=== PATIENT | female | born 1985 | race Caucasian/White ===

== ENCOUNTER → 2017-05-15 | Outpatient (CLI) | payer OTHER ==
--- NOTE | 2017-05-15 15:32 | US ---
EXAMINATION TYPE: US pelvis complete transvag DATE OF EXAM: 05/15/2017 COMPARISON: NONE CLINICAL HISTORY: Pelvic Pain R10.2. Pt states pelvic pressure TECHNIQUE: Transvaginal (TV) and Transabdominal (TA) Date of LMP: 05/03/2017 EXAM MEASUREMENTS: Uterus: 9.6 x 5.9 x 6.6 cm Endometrial Stripe: 1.4 cm Right Ovary: 4.3 x 3.3 x 2.7 cm Left Ovary: 3.0 x 2.6 x 2.6 cm 1. Uterus: Retroverted Heterogeneous with probable pedunculated fibroid posterior fundus= 4.8 x 4.1 x 4.8 cm 2. Endometrium: Heterogeneous 3. Right Ovary: Two cysts 1)= 3.1 x 1.7 x 2.1 cm 2)= 2.4 x 1.8 x 1.7 cm 4. Left Ovary: wnl 5. Bilateral Adnexa: wnl 6. Posterior cul-de-sac: wnl Heterogeneous uterus with probable fibroid, cysts right ovary IMPRESSION: 1. Posterior exophytic uterine fibroid. 2. Right ovarian cyst x2.
[2017-05-15 15:47] LABS: Appearance,Urine Clear (Clear); Bilirubin,Urine Negative (Negative); Glucose,Urine (UA) Negative (Negative); Ketones,Urine Negative (Negative); Leukocyte Esterase,Urine Negative (Negative); Nitrite,Urine Negative (Negative); Protein,Urine Negative (Negative); Specific Gravity,Urine 1.002 (1.001-1.035); UA Billing (MACRO vs. MICRO) CHEM; Urobilinogen,Urine <2.0 mg/dL (<2.0)
--- NOTE | 2017-05-16 07:27 | USB ---
Reason for exam: clinical finding. Indicated problem(s): lump or thickening in the right breast. Physical Findings: Nurse Summary: Patient complains of right breast lump x 2 weeks (nurse mm). US Breast RT Right breast ultrasound includes all four quadrants, the retroareolar region and axilla. Finding demonstrates no cystic or solid lesion seen. These results were verbally communicated with the patient and result sheet given to the patient on 05/15/17. ASSESSMENT: Negative, BI-RAD 1 RECOMMENDATION: Routine screening mammogram of both breasts at age 34. Manage patient on a clinical basis.
== END | disposition home or self-care (01) ==
LOC: RADUSWWP 14:48
PROVIDERS: ATTEND Obstetrics & Gynecology
DX: D25.9 Leiomyoma of uterus, unspecified (principal); N83.201 Unspecified ovarian cyst, right side
CPT/HCPCS: 76830; 76856; 81003; 87086

== ENCOUNTER → 2017-06-19 | Outpatient (CLI) | payer OTHER ==
--- NOTE | 2017-06-19 15:42 | US ---
EXAMINATION TYPE: US pelvic complete DATE OF EXAM: 06/19/2017 COMPARISON: 05/15/2017 CLINICAL HISTORY: 32-year-old female previous right Ovarian Cyst N83.20. Follow up to assess right ov valencia cyst TECHNIQUE: Multiple transabdominal sonographic images of the pelvis are obtained. Transvaginal scanni ng was medically necessary to better evaluate the anatomy. Date of LMP: 05/27 FINDINGS: Uterus: Anteverted measuring 9.2 x 7.3 x 5.6 cm. Heterogeneous myometrium with a 4.3 cm left posteri or body/fundal fibroid. This is primarily intramural and partially subserosal. Endometrial Stripe: 1.4 cm which is corresponding to the secretory phase of the menstrual cycle. Right Ovary: 3.9 x 4.2 x 3.4 cm enlarged and 26.1 mL. There is a 3.0 cm cyst within which demonstrat es internal low level echoes. No thickened septations or mural-based nodularity. On 05/15/2017, this me asured 3.1 cm. A second dominant cyst or follicle seen at that time has resolved. Left Ovary: 3.3 x 1.9 x 1.6 cm with small follicles. Mild free fluid noted within the bilateral adnexa. IMPRESSION: 1. Either a recurrent or persistent 3.0 cm dominant follicle or functional cyst within the right ovar y. There are internal low level echoes that could represent debris or some internal hemorrhage. 2. Heterogeneous uterus could reflect diffuse small fibroid change or adenomyosis. There is a 4.3 cm left posterior focal fibroid which is partially subserosal. 3. Mild adnexal free fluid likely physiologic.
== END | disposition home or self-care (01) ==
LOC: RADUSWWP 13:37
PROVIDERS: ATTEND Obstetrics & Gynecology
DX: N83.201 Unspecified ovarian cyst, right side (principal); D25.9 Leiomyoma of uterus, unspecified
CPT/HCPCS: 76830; 76856

== ENCOUNTER → 2017-07-24 | Outpatient (CLI) | payer OTHER ==
--- NOTE | 2017-07-24 09:25 | CT ---
EXAMINATION TYPE: CT thor lumbar spine wo con DATE OF EXAM: 07/24/2017 COMPARISON: NONE HISTORY: 32-year-old female pain in thoracic spine/lumbar spine. History of scoliosis TECHNIQUE: Contiguous axial scanning of the thoracic and lumbar spine without IV contrast. Coronal an d sagittal reconstructions performed. CT DLP: 870.20 mGycm Automated exposure control for dose reduction was used. FINDINGS: There is an S-shaped scoliosis of the thoracolumbar spine. Posterior fusion hardware with laminar hooks extend from T4 through L3 levels. There appears to be bony ankylosis along the posterior elements at these levels. Vertebral body heights are preserved. Alignment is maintained. Along the left, there appears to be variable mild bony neuroforaminal narrowing particularly from T6 through T10 levels. Along the right, there appears to be variable mild bony neuroforaminal narrowing at T5-T6, T6-T7, T9- T10, and T10-T11. At L3-L4, below the fusion, there is facet arthropathy with associated mild to moderate degenerative disc disease. There is bulging disc here as well and mild to moderate right neuroforaminal stenosis. No high-grade canal compromise seen here. At L4-L5, there is mild diffuse disc bulge without spinal canal stenosis. There appears to be a mild to moderate left neuroforaminal stenosis. At L5-S1, additional bulging disc with no spinal canal stenosis. Facet arthropathy is present with mo derate left neuroforaminal stenosis. Allowing for streak and beam hardening artifact, no high-grade canal compromise is identified. There are cholecystectomy clips and some degenerative changes at the left greater than right SI joint s. IMPRESSION: 1. S-SHAPED SCOLIOSIS WITH POSTERIOR FUSION HARDWARE FROM T4 THROUGH L3 LEVELS AND WITH BONY ANKYLOSI S OF THE POSTERIOR ELEMENTS AT THESE LEVELS. 2. FACET ARTHROPATHY AND DEGENERATIVE DISC DISEASE IN THE LUMBAR SPINE, PARTICULARLY AT L3-L4 BELOW T HE FUSION. CHANGES RESULT IN MILD TO MODERATE RIGHT NEUROFORAMINAL STENOSIS AT L3-L4 AND ON THE LEFT AT L4-L5. MODERATE LEFT NEUROFORAMINAL STENOSIS AT L5-S1. 3. VARIABLE MILD BONY NEUROFORAMINAL NARROWING IN THE THORACIC SPINE OUTLINED ABOVE. 4. NO KENNEY CANAL COMPROMISE SEEN.
== END | disposition home or self-care (01) ==
LOC: RADCTMAIN 07:05
PROVIDERS: ATTEND Internal Medicine
DX: M99.72 Connective tissue and disc stenosis of intervertebral foramina of thoracic region (principal); M99.73 Connective tissue and disc stenosis of intervertebral foramina of lumbar region; M46.06 Spinal enthesopathy, lumbar region; M51.36 Other intervertebral disc degeneration, lumbar region; Q76.3 Congenital scoliosis due to congenital bony malformation; Z98.1 Arthrodesis status; Z98.890 Other specified postprocedural states; Z88.1 Allergy status to other antibiotic agents
CPT/HCPCS: 72128; 72131

== ENCOUNTER → 2020-04-27 | Outpatient (CLI) | payer OTHER ==
[2020-04-28 00:54] LABS: Hepatitis A Antibody IgM Non-Reactive (Non-Reactive); Hepatitis B Core IgM Non-Reactive (Non-Reactive); Hepatitis B Surface Antigen Non-Reactive (Non-Reactive); Hepatitis C IgG Antibody Non-Reactive (Non-Reactive)
== END | disposition home or self-care (01) ==
LOC: LABWHC1 13:29
PROVIDERS: ATTEND Nurse Practitioner Family
DX: Z20.5 Contact with and (suspected) exposure to viral hepatitis (principal)
CPT/HCPCS: 36415; 80074

== ENCOUNTER → 2020-06-20 | Outpatient (CLI) | payer OTHER ==
--- NOTE | 2020-06-20 12:41 | US ---
EXAMINATION TYPE: US thyroid st tissue head/neck DATE OF EXAM: 06/20/2020 COMPARISON: 03/30/2015 US CLINICAL HISTORY: Z86.39 H/O Goiter. GLAND SIZE: Right Lobe: 5.5 x 1.5 x 1.8 cm Overall Parenchyma: heterogenous Left Lobe: 5.0 x 1.4 x 1.4 cm Overall Parenchyma: homogeneous Isthmus Thickness: 0.3 cm NODULES RIGHT: # of nodules measured on right: 0 LEFT: # of nodules measured on left: 0 ISTHMUS: # of nodules measured in the isthmus: 0 Bilateral neck scanned, no evidence of lymphadenopathy. Right thyroid lobe is enlarged and hypervascular IMPRESSION: Thyromegaly correlate for thyroiditis. No discrete thyroid nodule.
== END | disposition home or self-care (01) ==
LOC: RADUSWWP 12:15
PROVIDERS: ATTEND Family Medicine
DX: Z09 Encounter for follow-up examination after completed treatment for conditions other than malignant neoplasm (principal); E01.0 Iodine-deficiency related diffuse (endemic) goiter; Z86.39 Personal history of other endocrine, nutritional and metabolic disease
CPT/HCPCS: 76536

== ENCOUNTER → 2021-02-06 | Outpatient (CLI) | payer OTHER ==
[2021-02-06 16:43] LABS: T4, Free (Free Thyroxine) 1.1 ng/dL (0.80-1.80)
== END | disposition home or self-care (01) ==
LOC: LABWHC1 10:12
PROVIDERS: ATTEND Internal Medicine
DX: E06.9 Thyroiditis, unspecified (principal)
CPT/HCPCS: 36415; 84439; 84443; 84445; 86376

== ENCOUNTER → 2021-02-20 | Outpatient (CLI) | payer OTHER ==
--- NOTE | 2021-02-20 22:53 | MR ---
EXAMINATION TYPE: MR brain wo/w con DATE OF EXAM: 02/20/2021 COMPARISON: NONE HISTORY: Rt eye pain, vision changes, exophthalmia. TECHNIQUE: Multiplanar, multisequence images of the brain and brainstem is performed without and with IV contras t, utilizing 9 mL intravenous Gadavist . FINDINGS: Diffusion weighted images demonstrate no evidence of a recent infarct or other diffusion ab normality. There is no extra-axial fluid collection or significant white matter signal abnormality. The ventricular system and cisternal spaces are normal in size and appearance. The brain volume is age appropriate. Midline structures demonstrate empty sella morphology. The craniocervical junction appears within no rmal limits. Post contrast images demonstrate no abnormal enhancement. The dural venous sinuses appe ar patent. There is 1.7 cm mucous retention cyst in the anterior inferior left maxillary sinus otherw ise paranasal sinuses are clear. Globes are intact bilaterally. There is CSF prominence surrounding b ilateral optic nerve sheaths. IMPRESSION: Prominence of CSF surrounding optic nerves along with empty sella morphology raises allen rn for possible intracranial hypertension, correlate clinically.
== END | disposition home or self-care (01) ==
LOC: RADMRIMAIN 17:05
PROVIDERS: ATTEND Family Medicine
DX: H05.20 Unspecified exophthalmos (principal); H53.9 Unspecified visual disturbance; H57.11 Ocular pain, right eye
CPT/HCPCS: 70553; A9585

== ENCOUNTER 2024-02-28 07:18 | Inpatient (IN) | payer BC, OTHER ==
--- NOTE | 2024-02-28 07:30 | ED ---
Abdominal Pain HPI - General Chief Complaint: Abdominal Pain Stated Complaint: R side abd pain/Nausea Time Seen by Provider: 02/28/24 07:22 Source: patient, RN notes reviewed Mode of arrival: ambulatory Limitations: no limitations - History of Present Illness Initial Comments: This is a 38-year-old female who presents to the emergency department for right flank pain and abdominal pain. States that symptoms started around 4 to 5 AM. She has associated nausea and vomiting. Denies any changes in bowel/bladder habits or fever/chills. Also denies any history of kidney stones or similar symptoms in the past. MD Complaint: abdominal pain, flank pain - Related Data Home Medications Medication Instructions Recorded Confirmed Cbl-[id number]-Pioyw Acid 1 cap PO DAILY 01/01/23 01/01/23 [-U Capsule (formulary)] Previous Rx's Medication Instructions Recorded Nitrofurantoin Monohyd/M-Cryst 100 mg PO Q12HR #10 cap 01/01/23 [Macrobid] Allergies Allergy/AdvReac Type Severity Reaction Status Date / Time cefaclor [From Ceclor] Allergy Anaphylaxis Verified 01/01/23 21:17 sulfamethoxazole AdvReac Nausea & Verified 02/28/24 07:22 [From Bactrim] Vomiting & Diarrhea trimethoprim [From Bactrim] AdvReac Nausea & Verified 02/28/24 07:22 Vomiting & Diarrhea Review of Systems ROS Statement: Those systems with pertinent positive or pertinent negative responses have been documented in the HPI. ROS Other: All systems not noted in ROS Statement are negative. Past Medical History Additional Past Medical History / Comment(s): Fibriods History of Any Multi-Drug Resistant Organisms: None Reported Past Surgical History: Cholecystectomy Additional Past Surgical History / Comment(s): scoliosis Past Psychological History: No Psychological Hx Reported Smoking Status: Former smoker Past Alcohol Use History: Rare Past Drug Use History: Marijuana General Exam Limitations: no limitations General appearance: alert, in distress Head exam: Present: atraumatic, normocephalic, normal inspection Respiratory exam: Present: normal lung sounds bilaterally. Absent: respiratory distress, wheezes, rales, rhonchi, stridor Cardiovascular Exam: Present: regular rate, normal rhythm, normal heart sounds. Absent: systolic murmur, diastolic murmur, rubs, gallop, clicks GI/Abdominal exam: Present: soft, tenderness (RLQ), normal bowel sounds. Ab sent: distended Back exam: Present: CVA tenderness (R). Absent: CVA tenderness (L) Neurological exam: Present: alert, oriented X3, CN II-XII intact Psychiatric exam: Present: normal affect, normal mood Skin exam: Present: warm, dry, intact, normal color. Absent: rash Course Vital Signs 02/28/24 02/28/24 02/28/24 07:18 10:43 11:29 Temperature 98 F 97.0 F L Pulse Rate 55 L Pulse Rate [ 59 L Pulse Oximetery ] Respiratory 18 18 16 Rate Blood Pressure 147/77 127/114 Blood Pressure 126/58 [Left Arm] O2 Sat by Pulse 98 100 100 Oximetry Medical Decision Making - Medical Decision Making This is a 38 year old female who presents to the emergency department for abdominal pain. Was pt. sent in by a medical professional or institution? @ -No Did you speak to anyone other than the patient for history? @ -No Did you review nursing and triage notes? @ -Yes, and I agree, it is accurate with regards to the patient's symptoms. Were old charts reviewed? @ -No Differential Diagnosis? @ -Differential Abdominal Pain Women: Appendicitis, Cholecystitis, diverticulosis, ischemic bowel, pancreatitis, hepatitis, UTI, gastroenteritis, AAA, incarcerated hernia, bowel obstruction, constipation, inflammatory bowel, hepatitis, peptic ulcer disease, splenic infarction, perforated viscus, vulvitis, ovarian torsion, PID, kidney stone, placenta abruption, this is not meant to be an all-inclusive list EKG interpreted by me (3pts min.)? @ -Not obtained X-rays interpreted by me (1pt min.)? @ -Not obtained CT interpreted by me (1pt min.)? @ -CT scan of the abdomen and pelvis obtained. My interpretation identifies no evidence of a ureteral calculus. U/S interpreted by me (1pt. min.)? @ -Transvaginal ultrasound obtained. My interpretation identifies lack of flow to the right ovary. What testing was considered but not performed? (CT, X-rays, U/S, labs)? Why? @ -None What meds were considered but not given? Why? @ -None Did you discuss the management of the patient with other professionals? @ -Yes, Dr. Jovel, OVEN LOADER, who evaluated her in the emergency department and took her to the OR for surgery for right sided ovarian torsion. Did you reconcile home meds? @ -No Was smoking cessation discussed for >3mins.? @ -No Was critical care preformed (if so, how long)? @ -No Were there social determinants of health that impacted care today? How? (Home lessness, low income, unemployed, alcoholism, drug addiction, transportation, low edu. Level, literacy, decrease access to med. care, group home, rehab)? @ -No Was there de-escalation of care discussed even if they declined? (Discuss DNR or withdrawal of care, Hospice)? @ -No What co-morbidities impacted this encounter? (DM, HTN, Smoking, COPD, CAD, Ca ncer, CVA, Hep., AIDS, mental health diagnosis, sleep apnea, morbid obesity)? @ -None Was patient admitted / discharged? @ -Admitted. Lab work demonstrates an elevated lactic acid of 3.5. Given the flank pain, patient was initially worked up for possible kidney stone. CT scan of the abdomen and pelvis demonstrates no evidence of a ureteral calculus, but does demonstrate an asymmetrically enlarged right ovary and a large lobulated uterus compatible with fibroid change. Transvaginal ultrasound was subsequently obtained. I spoke with the donor center technician following the exam who saw blood flow to the periphery but not to the ovary itself. This was discussed with Dr. Jovel, OVEN LOADER, who reviewed the patient's images. I was then contacted by radiology confirming that there was no flow to the right ovary itself, only around the periphery, and they were concerned for ovarian torsion. I spoke with Dr. Jovel again, who was in agreement with radiology. She evaluated her in the emergency department and she was taken from the emergency department to the OR for emergency surgery regarding ovarian torsion. Undiagnosed new problem with uncertain prognosis? @ -None Drug Therapy requiring intensive monitoring for toxicity (Heparin, Nitro, Insulin, Cardizem)? @ -None Were any procedures done? @ -None Diagnosis/symptom? @ -Right ovarian torsion Acute, or Chronic, or Acute on Chronic? @ -Acute Uncomplicated (without systemic symptoms) or Complicated (systemic symptoms)? @ -Complicated Side effects of treatment? @ -None Exacerbation, Progression, or Severe Exacerbation] @ -Not applicable Poses a threat to life or bodily function? @ -Yes This case was discussed in detail with the attending ED physician, Dr. Barnes. Presentation, findings, and treatment plan discussed in detail as well. - Lab Data Result diagrams: 02/29/24 05:09 02/28/24 07:51 Lab Results 02/28/24 02/28/24 02/28/24 Range/Units 07:51 07:51 07:51 WBC 9.9 (3.8-10.6) k/uL RBC 4.09 (3.80-5.40) m/uL Hgb 11.1 L (11.4-16.0) gm/dL Hct 35.0 (34.0-46.0) % MCV 85.5 (80.0-100.0) fL MCH 27.3 (25.0-35.0) pg MCHC 31.9 (31.0-37.0) g/dL RDW 16.0 H (11.5-15.5) % Plt Count 374 (150-450) k/uL MPV 8.6 Neutrophils % 86 % Lymphocytes % 10 % Monocytes % 3 % Eosinophils % 1 % Basophils % 0 % Neutrophils # 8.5 H (1.3-7.7) k/uL Lymphocytes # 1.0 (1.0-4.8) k/uL Monocytes # 0.3 (0-1.0) k/uL Eosinophils # 0.1 (0-0.7) k/uL Basophils # 0.0 (0-0.2) k/uL Sodium 138 (137-145) mmol/L Potassium 3.7 (3.5-5.1) mmol/L Chloride 117 H (98-107) mmol/L Carbon Dioxide 14 L (22-30) mmol/L Anion Gap 7 mmol/L BUN 11 (7-17) mg/dL Creatinine 0.40 L (0.52-1.04) mg/dL Est GFR (CKD-EPI)AfAm >90 (>60 ml/min/1.73 sqM) Est GFR (CKD-EPI)NonAf >90 (>60 ml/min/1.73 sqM) Glucose 111 H (74-99) mg/dL Lactic Ac Sepsis Rflx Plasma Lactic Acid Gilles (0.7-2.0) mmol/L Calcium 7.3 L (8.4-10.2) mg/dL Total Bilirubin 0.6 (0.2-1.3) mg/dL AST 25 (14-36) U/L ALT 13 (4-34) U/L Alkaline Phosphatase 44 (38-126) U/L Total Protein 6.1 L (6.3-8.2) g/dL Albumin 3.2 L (3.5-5.0) g/dL Amylase 55 (30-110) U/L Lipase 79 (23-300) U/L HCG, Qual Not Detected Urine Color Light Yellow Urine Appearance Clear (Clear) Urine pH 8.5 H (5.0-8.0) Ur Specific Beccaria 1.023 (1.001-1.035) Urine Protein 1+ H (Negative) Urine Glucose (UA) Negative (Negative) Urine Ketones 2+ H (Negative) Urine Blood Moderate H (Negative) Urine Nitrite Negative (Negative) Urine Bilirubin Negative (Negative) Urine Urobilinogen <2.0 (<2.0) mg/dL Ur Leukocyte Esterase Negative (Negative) Urine RBC 3 (0-5) /hpf Urine WBC 2 (0-5) /hpf Ur Squamous Epith Cells 1 (0-4) /hpf Urine Mucus Rare H (None) /hpf 02/28/24 02/28/24 Range/Units 07:51 08:32 WBC (3.8-10.6) k/uL RBC (3.80-5.40) m/uL Hgb (11.4-16.0) gm/dL Hct (34.0-46.0) % MCV (80.0-100.0) fL MCH (25.0-35.0) pg MCHC (31.0-37.0) g/dL RDW (11.5-15.5) % Plt Count (150-450) k/uL MPV Neutrophils % % Lymphocytes % % Monocytes % % Eosinophils % % Basophils % % Neutrophils # (1.3-7.7) k/uL Lymphocytes # (1.0-4.8) k/uL Monocytes # (0-1.0) k/uL Eosinophils # (0-0.7) k/uL Basophils # (0-0.2) k/uL Sodium (137-145) mmol/L Potassium (3.5-5.1) mmol/L Chloride (98-107) mmol/L Carbon Dioxide (22-30) mmol/L Anion Gap mmol/L BUN (7-17) mg/dL Creatinine (0.52-1.04) mg/dL Est GFR (CKD-EPI)AfAm (>60 ml/min/1.73 sqM) Est GFR (CKD-EPI)NonAf (>60 ml/min/1.73 sqM) Glucose (74-99) mg/dL Lactic Ac Sepsis Rflx Y Plasma Lactic Acid Gilles 3.5 H* (0.7-2.0) mmol/L Calcium (8.4-10.2) mg/dL Total Bilirubin (0.2-1.3) mg/dL AST (14-36) U/L ALT (4-34) U/L Alkaline Phosphatase (38-126) U/L Total Protein (6.3-8.2) g/dL Albumin (3.5-5.0) g/dL Amylase (30-110) U/L Lipase (23-300) U/L HCG, Qual Urine Color Urine Appearance (Clear) Urine pH (5.0-8.0) Ur Specific Beccaria (1.001-1.035) Urine Protein (Negative) Urine Glucose (UA) (Negative) Urine Ketones (Negative) Urine Blood (Negative) Urine Nitrite (Negative) Urine Bilirubin (Negative) Urine Urobilinogen (<2.0) mg/dL Ur Leukocyte Esterase (Negative) Urine RBC (0-5) /hpf Urine WBC (0-5) /hpf Ur Squamous Epith Cells (0-4) /hpf Urine Mucus (None) /hpf - Radiology Data Radiology results: report reviewed, image reviewed Disposition Clinical Impression: Torsion of right ovary Disposition: ADMITTED IP TO THIS [facility] Time of Disposition: 11:25
[2024-02-28] MEDS: MORPHINE SULFATE 4 MG/ML SYRINGE IVP STA ×2 (07:55→10:46)
[2024-02-28] MEDS: SODIUM CHLORIDE 0.9% 1,000 ML IV STA ×2 (07:55→08:39)
[2024-02-28] MEDS: KETOROLAC 15 MG/ML 1 ML VIAL IVP STA ×2 (07:55→10:46)
[2024-02-28] MEDS: ONDANSETRON 4 MG/2 ML VIAL IVP STA ×3 (07:55→10:52)
[2024-02-28 08:30] LABS: ALT 13 U/L (4-34); African American GFR (CKD) >90 (>60 ml/min/1.73 sqM); Amylase 55 U/L (30-110); Anion Gap 7 mmol/L; Blood Urea Nitrogen 11 mg/dL (7-17); Calcium 7.3 mg/dL (8.4-10.2); Carbon Dioxide 14 mmol/L (22-30); Chloride 117 mmol/L (98-107); Glucose 111 mg/dL (74-99); Lipase 79 U/L (23-300); Non-African American GFR(CKD) >90 (>60 ml/min/1.73 sqM); Sodium 138 mmol/L (137-145); Total Bilirubin 0.6 mg/dL (0.2-1.3)
[2024-02-28 08:31] LABS: AST 25 U/L (14-36); Albumin 3.2 g/dL (3.5-5.0); Alkaline Phosphatase 44 U/L (38-126); Potassium 3.7 mmol/L (3.5-5.1); Total Protein 6.1 g/dL (6.3-8.2)
[2024-02-28 08:38] LABS: Basophils % (A) 0 %; Eosinophils # (A) 0.1 k/uL (0-0.7); Eosinophils % (A) 1 %; HGB 11.1 gm/dL (11.4-16.0); Lymphocytes % (A) 10 %; MCH 27.3 pg (25.0-35.0); MCHC 31.9 g/dL (31.0-37.0); MCV 85.5 fL (80.0-100.0); Mean Platelet Volume 8.6; Monocytes # (A) 0.3 k/uL (0-1.0); Monocytes % (A) 3 %; Neutrophils # (A) 8.5 k/uL (1.3-7.7); Neutrophils % (A) 86 %; Platelet Count 374 k/uL (150-450); RBC 4.09 m/uL (3.80-5.40); WBC 9.9 k/uL (3.8-10.6)
--- NOTE | 2024-02-28 09:14 | CT ---
EXAMINATION TYPE: CT abdomen pelvis wo con CT DLP: 728.9 mGycm, Automated exposure control for dose reduction was used. DATE OF EXAM: 02/28/2024 8:29 AM COMPARISON: CT abdomen pelvis most recent from 07/11/2011 CLINICAL INDICATION:Female, 38 years old with history of Right flank pain; Right flank pain TECHNIQUE: Axial CT abdomen pelvis wo con;Sagittal and coronal reformats were created on a separate workstation. Contrast used: mL of , (none if empty) Oral contrast used: without Oral Contrast (none if empty) FINDINGS: LOWER CHEST: Unremarkable ABDOMEN LIVER: Unremarkable GALLBLADDER AND BILE DUCTS: Gallbladder surgically absent. PANCREAS: Unremarkable. SPLEEN: Unremarkable. ADRENAL GLANDS: Unremarkable. KIDNEYS AND URETERS: No evidence of hydronephrosis or renal calculus. The ureters are unremarkable. PELVIS BLADDER: Unremarkable REPRODUCTIVE: Enlarged lobulated uterus the right ovary is asymmetrically enlarged and hyperemic. Rig ht Ovary measuring 53 x 33 mm series 201 image 63. Left ovary measuring 33 x 25 mm. ABDOMEN & PELVIS STOMACH AND BOWEL: No evidence of bowel obstruction. The appendix is visualized and normal. Small lashon unt of feces seen in the terminal ileum series 201 image 52 PERITONEUM/RETROPERITONEUM: No evidence of pneumoperitoneum or free fluid. VASCULATURE: No evidence of aortic aneurysm. MUSCULOSKELETAL: No acute osseous abnormalities LYMPH NODES: No gross evidence for lymphadenopathy. SOFT TISSUE/ABDOMINAL WALL: Unremarkable IMPRESSION: 1. Asymmetrically enlarged right ovary consider further evaluation with transabdominal ultrasound. T he right ovary is located to the right of the uterus more anterior low pelvis probably best seen on t ransabdominal imaging not transvaginal. 2. Large lobulated uterus compatible with fibroid change. 3. No obstructive uropathy identified. The appendix is normal.
[2024-02-28 09:44] LABS: HCG,Qualitative Serum Not Detected
[2024-02-28 10:14] LABS: Appearance,Urine Clear (Clear); Bilirubin,Urine Negative (Negative); Blood,Urine Moderate (Negative); Color,Urine Light Yellow; Glucose,Urine (UA) Negative (Negative); Ketones,Urine 2+ (Negative); Leukocyte Esterase,Urine Negative (Negative); Mucus,Urine Rare /hpf; Nitrite,Urine Negative (Negative); PH, Urine 8.5 (5.0-8.0); Protein,Urine 1+ (Negative); RBC,Urine 3 /hpf (0-5); Specific Gravity,Urine 1.023 (1.001-1.035); Squamous Epithelial Cell,Urine 1 /hpf (0-4); Urobilinogen,Urine <2.0 mg/dL (<2.0); WBC,Urine 2 /hpf (0-5)
--- NOTE | 2024-02-28 10:19 | US ---
EXAMINATION TYPE: US transvaginal DATE OF EXAM: 02/28/2024 COMPARISON: NONE CLINICAL INDICATION: Female, 38 years old with history of Pelvic pain, enlarged right ovary on CT; f/ u to ct scan pain rlq TECHNIQUE: Transvaginal (TV). Transabdominal sonographic images of the pelvis were acquired. Trans vaginal sonographic images were medically necessary to better assess the following anatomy: EXAM MEASUREMENTS: Uterus: 11.9 x 7.9 x 11 cm Endometrial Stripe: not visualized due to fibroids Right Ovary: 5.9 x 5.3 x 4.1 cm Left Ovary: Obscured by bowel gas. 1. Uterus: Anteverted multiple fibroids seen largest 6.7 cm. 2. Endometrium: Obscured by fibroids 3. Right Ovary: enlarged flow seen around periphery not seen within ovary. Findings can be compatib le with ovarian torsion. Clinical correlation recommended. 4. Left Ovary: Obscured by overlying bowel gas Spectral, color and waveform doppler imaging shows not good arterial and venous flow within the rig ht ovary; 5. Bilateral Adnexa: wnl 6. Posterior cul-de-sac: wnl IMPRESSION: 1. Lack of color flow within the right ovary is suspicious for ovarian torsion. Report was called to the emergency room PA by Dr. Whitney by telephone at 1017 hours 02/28/2024 2. Uterine fibroids.
[2024-02-28] MEDS: ONDANSETRON 4 MG/2 ML VIAL IM STA (10:54)
[2024-02-28] MEDS: ACETAMINOPHEN IV (For NPO) 1,000 MG in EMPTY BAG 1 BAG IVPB STA (10:57)
[2024-02-28] MEDS ORDERED: NALOXONE 0.4 MG/ML 1 ML VIAL IV PRN (11:24)
[2024-02-28] MEDS: LACTATED RINGERS 1,000 ML IV ONE (11:28)
--- NOTE | 2024-02-28 11:34 | P.HPOB ---
History of Present Illness H&P Date: 02/28/24 Chief Complaint: Right lower quadrant pain, right ovarian torsion 38-year-old 1 para 1-0-0-1 that presented to the emergency department this morning with complaints of sudden onset right lower quadrant pain that began this morning. Patient has noted increasing pain while in the ER, nausea and vomiting. On CT examination a enlarged right ovary was appreciated. Tr ansabdominal ultrasound was performed revealing ovarian torsion. US reviewed by myself, enlarged fibroid uterus 11cm, right ovary with no blood flow appreciated, peripheral flow only, normal appearing left ovary [facility] history c/s secindary to prior myomoecotmy menses are regular q month with moderate to heavy flow Review of Systems Constitutional: Reports fatigue, Denies chills, Denies fever Ears, nose, mouth and throat: Denies headache Cardiovascular: Denies leg edema Gastrointestinal: Reports nausea, Reports vomiting Genitourinary: Denies abnormal vaginal bleeding, Denies Past Medical History Additional Past Medical History / Comment(s): Fibriods History of Any Multi-Drug Resistant Organisms: None Reported Past Surgical History: Cholecystectomy Additional Past Surgical History / Comment(s): scoliosis Past Psychological History: No Psychological Hx Reported Smoking Status: Former smoker Past Alcohol Use History: Rare Past Drug Use History: Marijuana Medications and Allergies Home Medications Medication Instructions Recorded Confirmed Type Nitrofurantoin Monohyd/M-Cryst 100 mg PO Q12HR #10 cap 01/01/23 Rx [Macrobid] Ztp-Kpgl-Kfnca Acid 1 cap PO DAILY 01/01/23 01/01/23 History [-U Capsule (formulary)] Allergies Allergy/AdvReac Type Severity Reaction Status Date / Time cefaclor [From Ceclor] Allergy Anaphylaxis Verified 01/01/23 21:17 sulfamethoxazole AdvReac Nausea & Verified 02/28/24 07:22 [From Bactrim] Vomiting & Diarrhea trimethoprim [From Bactrim] AdvReac Nausea & Verified 02/28/24 07:22 Vomiting & Diarrhea Exam Osteopathic Statement: *. No significant issues noted on an osteopathic structural exam other than those noted in the History and Physical/Consult. Vital Signs Temp Pulse Resp BP Pulse Ox 02/28/24 10:43 18 127/114 100 02/28/24 07:18 98 F 55 L 18 147/77 98 Intake and Output 02/27/24 02/28/24 02/28/24 22:59 06:59 14:59 Other: Weight 88.451 kg Physical exam is performed this date General is a well-nourished well-developed female in no acute distress, patient is lying on her side clutching her abdomen, breathing appears nonlabored, heart has a regular rhythm, abdomen is tender generalized to the right lower quadrant Results Result Diagrams: 02/28/24 07:51 02/28/24 07:51 Abnormal Lab Results - Last 24 Hours (Table) 02/28/24 02/28/24 02/28/24 Range/Units 07:51 07:51 07:51 Hgb 11.1 L (11.4-16.0) gm/dL RDW 16.0 H (11.5-15.5) % Neutrophils # 8.5 H (1.3-7.7) k/uL Chloride 117 H (98-107) mmol/L Carbon Dioxide 14 L (22-30) mmol/L Creatinine 0.40 L (0.52-1.04) mg/dL Glucose 111 H (74-99) mg/dL Plasma Lactic Acid Gilles 3.5 H* (0.7-2.0) mmol/L Calcium 7.3 L (8.4-10.2) mg/dL Total Protein 6.1 L (6.3-8.2) g/dL Albumin 3.2 L (3.5-5.0) g/dL Assessment and Plan (1) Ovarian torsion Current Visit: Yes Status: Acute Code(s): N83.519 - TORSION OF OVARY AND OVARIAN PEDICLE, UNSPECIFIED SIDE SNOMED Code(s): 84338860 Plan: 38-year-old 1 para 1 that presented to the ER with complaints of right lower quadrant pain. Upon imaging right ovarian torsion is appreciated. P atient has a significant history of myomectomy and section. Patient is counseled on operative laparoscopy versus exploratory laparotomy. Risks are reviewed with patient including but not limited to infection, bleeding, damage to bladder, bowel, ureteric injury. Patient is counseled on ultrasound findings of enlarged uterus with fibroids. Questions are answered.
[2024-02-28] MEDS ORDERED: LIDOCAINE 1% INJ 10MG/ML (20 ML MDV) ONE (11:38)
[2024-02-28] MEDS ORDERED: HYDROmorphone (PF) 1 MG/ML ONE (11:38)
[2024-02-28] MEDS ORDERED: SUCCINYLCHOLINE CHLORIDE 200 MG/10 ML VIAL IV ONE (11:38)
[2024-02-28] MEDS ORDERED: MIDAZOLAM 2 MG/2 ML VIAL ONE (11:38)
[2024-02-28] MEDS ORDERED: ROCURONIUM 10 MG/ML (5 ML VIAL) IV ONE (11:38)
[2024-02-28] MEDS ORDERED: LIDOCAINE 4% LTA KIT (4 ML) TOPICAL ONE (11:38)
[2024-02-28] MEDS ORDERED: GLYCOPYRROLATE 0.2 MG/ML 2 ML VIAL ONE (11:38)
[2024-02-28] MEDS ORDERED: NEOSTIGMINE 1 MG/ML 10 ML VIAL ONE (11:38)
[2024-02-28] MEDS ORDERED: PROPOFOL 10 MG/ML 20 ML VIAL IV ONE (11:38)
[2024-02-28] MEDS ORDERED: KETOROLAC 15 MG/ML 1 ML VIAL ONE (11:38)
[2024-02-28] MEDS ORDERED: fentaNYL (PF) 50 MCG/ML 2 ML AMP ONE (11:38)
[2024-02-28] MEDS: BUPIVACAINE (PF) 0.25% 30 ML VIAL SQ ONE ×2 (11:57→12:43)
[2024-02-28] MEDS ORDERED: Acetaminophen-Codeine 300-30mg TAB PO PRN (13:36)
[2024-02-28] MEDS ORDERED: diphenhydrAMINE 50 MG/ML 1 ML VIAL IVP PRN (13:36)
[2024-02-28] MEDS ORDERED: SIMETHICONE 80 MG CHEWABLE PO PRN (13:36)
--- NOTE | 2024-02-28 13:45 | P.OP ---
Date of Procedure: 02/28/24 Preoperative Diagnosis: Right ovarian torsion Postoperative Diagnosis: Same Procedure(s) Performed: Operative laparoscopy with right salpingo-oophorectomy Anesthesia: JUAN LUISA Surgeon: Kalpana Jovel Janitorial Supervisor #1: Benny Du Estimated Blood Loss (ml): 10 Urine output (ml): 350 Pathology: other (Right ovary and tube) Condition: stable Disposition: PACU Indications for Procedure: 38-year-old female that presented with complaints of sudden onset of pain around 4:30 AM. Patient notes the pain to be severe in nature, positive nausea and vomiting associated. Negative testing. On CT scan enlarged ovary with 5 cm cyst was appreciated, ultrasound confirmed ovarian cyst with noted ovarian torsion. Uterus is noted to be enlarged with fibroid changes Operative Findings: Enlarged fibroid uterus filling the pelvic cavity, right ovary was noted to be dark with hemorrhagic appearance, ovary was noted to be torsed upon the infundibulopelvic ligament. Left ovary was noted to be normal in appearance Omental adhesions were noted taken down with cautery hemostasis appreciated throughout Description of Procedure: Patient was taken back to the operating suite where general anesthesia was obtained without difficulty by the anesthesia department. She was prepped and draped in normal sterile fashion in the dorsolithotomy position. A Mares catheter was placed under sterile technique. A Graves speculum is placed in the patient's vaginal vault, the anterior lip of the cervix was visualized grasped with a single-tooth tenaculum and an acorn uterine manipulator was advanced into the uterus as a means to manipulate the uterus throughout the procedure. Attention was then turned to the patient's abdomen or approximately 2 fingerbreadths above the umbilicus a small skin incision is made. Through this incision the Veress needle was placed. Once the Veress needle was deemed to be in proper position with a drop of CO2 pressure with the insufflation of CO2 gas CO2 insufflation was allowed to occur. At this time a 5 mm trocar and sleeve, with the laparoscope in place. It was placed through the skin incision and toward the pneumoperitoneum. The above-noted findings were visualized. An additional 10 mm port site is placed in the left mid abdomen under direct visualization. The LigaSure was placed through this incision and the omental adhesions were taken down sharply. Hemostasis was noted. An additional port site was placed in the right lateral abdomen this is a 5 mm port placed under direct visualization. At this time the uterus was elevated with a blunt probe and the ovary was noted to be deep in the pelvis but was able to be elevated out of the pelvis the site of torsion was appreciated. The ovary was then elevated and the infundibulopelvic ligament was coagulated distally and proximally and divided this continued through the broad the utero-ovarian ligament was visualized coagulated and transected. The right ovary and fallopian tube were then placed in Endo Catch bag and removed from the left abdominal incision, the incision was extended to accommodate the size of the specimen. The pelvis was then inspected along with the pedicle, hemostasis was appreciated. Scarring of the posterior uterus to peritoneum/bowel was appreciated. All instruments were removed from the patient's abdomen at this time. Throughout the procedure the Mares was noted to be draining clear yellow urine. The ureter was noted below the operating pedicle during oophorectomy. The fascia on the left lateral incision was grasped with an Allis and closed in a running fashion. The subcutaneous tissue was noted to be hemostatic. The skin incision was closed with 4-0 Vicryl subcuticular fashion. The additional port sites were placed with 4-0 Vicryl in a subcuticular fashion. Steri-Strips and sterile dressings were applied. Attention was then turned to the patient's Mares catheter which was removed without difficulty. Clear urine was noted in the Mares catheter. The acorn you manipulator was removed along with the single-tooth tenaculum off of the anterior lip of the cervix. Hemostasis was noted. All counts were noted be correct x 2. Patient tolerated procedure well and was taken the recovery room awake in stable condition.
[2024-02-28] MEDS: LACTATED RINGERS 1,000 ML IV SCH (14:20)
[2024-02-28] MEDS: IBUPROFEN 600 MG TAB PO PRN (15:45)
[2024-02-28] MEDS: ACETAMINOPHEN IV (For NPO) 1,000 MG in EMPTY BAG 1 BAG IVPB ONE (18:45)
[2024-02-28] MEDS: SENNOSIDES-DOCUSATE SODIUM 1 EACH TAB PO SCH (21:38)
[2024-02-29] MEDS: ACETAMINOPHEN TAB 325 MG TAB PO PRN (02:13)
[2024-02-29 05:37] LABS: Anisocytosis Slight; Basophils % (A) 1 %; Eosinophils # (A) 0.1 k/uL (0-0.7); Eosinophils % (A) 1 %; Hypochromasia Moderate; Lymphocytes % (A) 32 %; MCH 28.1 pg (25.0-35.0); MCHC 31.7 g/dL (31.0-37.0); MCV 88.6 fL (80.0-100.0); Mean Platelet Volume 8.4; Monocytes # (A) 0.3 k/uL (0-1.0); Monocytes % (A) 5 %; Neutrophils # (A) 3.7 k/uL (1.3-7.7); Neutrophils % (A) 59 %; Platelet Count 239 k/uL (150-450); RBC 3.27 m/uL (3.80-5.40); RDW 16.2 % (11.5-15.5); WBC 6.3 k/uL (3.8-10.6)
[2024-02-29 05:39] LABS: HGB 9.2 gm/dL (11.4-16.0)
[2024-02-29] MEDS: Acetaminophen-Codeine 300-30mg TAB PO PRN (07:54)
[2024-02-29 08:45] VITALS: BP 118/75; PULSE 67; RESP 16; TEMP 99
--- NOTE | 2024-02-29 09:30 | P.DS ---
Providers Date of admission: 02/28/24 11:12 Expected date of discharge: 02/29/24 Attending physician: Kalpana Jovel Primary care physician: Callie Bhakta - Discharge Diagnosis(es) (1) Ovarian torsion Current Visit: Yes Status: Acute (2) S/P laparoscopic surgery Current Visit: Yes Status: Acute Hospital Course: 38 yo female that presented to the emergency department today morning with complaints of acute onset of right lower quadrant pain. Patient stated in her flank and radiated toward the right lower quadrant. Patient ultimately had an ultrasound revealing a right ovarian torsion, no blood flow was visualized to the ovary. Patient was taken back to the operating suite after informed consent was obtained and ultrasound results were reviewed. Patient underwent operative laparoscopy with right salpingo-oophorectomy. Patient had noted enlarged uterus with fibroid changes, left ovary was noted to be normal. Patient's postoperative care has been essentially uncomplicated. In this postoperative day #1 she is ambulating and voiding without difficulty. She is tolerating a regular diet without nausea or vomiting. She states she has had positive flatus. She notes her pain to be well-controlled. Patient Condition at Discharge: Good Plan - Discharge Summary Discharge Rx Participant: No New Discharge Prescriptions: No Action Cla-Ylrx-Anqpz Acid [-U Capsule (formulary)] 1 cap PO DAILY Nitrofurantoin Monohyd/M-Cryst [Macrobid] 100 mg PO Q12HR #10 cap Discharge Medication List Nitrofurantoin Monohyd/M-Cryst [Macrobid] 100 mg PO Q12HR #10 cap 01/01/23 [Rx] Gyg-Qoqy-Vmaef Acid [-U Capsule (formulary)] 1 cap PO DAILY 01/01/23 [History] Follow up Appointment(s)/Referral(s): Kalpana Jovel DO [Doctor of Osteopathic Medicine] - 2 Weeks Patient Instructions/Handouts: *Surgery [facility] - ([facility]) Laparoscopy Post-Op Instructions Activity/Diet/Wound Care/Special Instructions: No intercourse, tampons or douching. No heavy lifting greater than a gallon of milk. No driving for two weeks. Call with any fever, shakes or chills, with any pain not alleviated by over the counter meds, or with any quesions or concerns. Ilmg-qfk-wfsigsb ibuprofen 600 mg or 3 tablets every 6 hours as needed for pain. In addition a prescription for Tylenol 3 is given to the patient. Off work until postoperative exam in 2 weeks. Patient is to call the office [phone] for routine postoperative check at [facility] Discharge Disposition: HOME SELF-CARE
[2024-02-29] MEDS ORDERED: ACETAMINOPHEN TAB 325 MG TAB PO PRN (13:37)
--- NOTE | 2024-03-04 14:47 | CDI ---
Documentation Clarification Form Date: 03/04/2024 02:33:27 PM From: Effie Espinosa RN, CCDS Phone: [phone] Admit Date: 02/28/2024 11:12:00 AM Patient Name: Mary Kessler Visit Number: [id number] Discharge Date: 02/29/2024 11:20:00 AM ATTENTION: The Clinical Documentation Specialists (CDI) and [facility] Coding Staff appreciate your assistance in clarifying documentation. Please respond to the clarification below the line at the bottom and electronically sign. The CDI & [facility] Coding staff will review the response and follow-up if needed. Please note: Queries are made part of the Legal Health Record. If you have any questions, please contact the author of this message via ITS. Dr. Kalpana Jovel There is documentation of elevated lactic acid in the ED note. Additional clarification regarding this diagnosis is requested. History/Risk Factors: 38-year-old 1 para 1-0-0-1. Presents with right lower quadrant abdominal pain, nausea and vomiting. Admitted with ovarian torsion. S/P laparoscopy with right salpingo-oophorectomy on 02/27. Clinical Indicators: 02/27 Labs: lactic acid 3.5-0.7 02/27 ED: "Lab work demonstrates an elevated lactic acid of 3.5." 02/27 H&P: "Patient has noted increasing pain while in the ER, nausea and vomiting. Plasma Lactic Acid Gilles 3.5 H* (0.7-2.0) mmol/L." Treatment: 1L 0.9 NS IV bolus x2 on 02/27 Please clarify if there is an additional diagnosis: [ ] Lactic Acidosis [ ] No additional diagnosis/Not clinically significant [ ] Unable to determine [ ] Other, please specify MTDD
== END 2024-02-29 11:20 | disposition home or self-care (01) | DRG 743 ==
LOC: EC 07:18 → 4FBP 11:12
PROVIDERS: ADMIT Obstetrics & Gynecology Obstetrics; ATTEND Obstetrics & Gynecology Obstetrics
PROC: 0UT04ZZ Resection of Right Ovary, Percutaneous Endoscopic Approach (ICD-10-PCS; principal; 2024-02-28 09:45)
PROC: 0UT54ZZ Resection of Right Fallopian Tube, Percutaneous Endoscopic Approach (ICD-10-PCS; principal; 2024-02-28 09:45)
DX: N83.511 Torsion of right ovary and ovarian pedicle (principal); D25.9 Leiomyoma of uterus, unspecified; N83.201 Unspecified ovarian cyst, right side; Z28.310 Unvaccinated for COVID-19; R74.02 Elevation of levels of lactic acid dehydrogenase [LDH]; M41.9 Scoliosis, unspecified; Z87.891 Personal history of nicotine dependence
CPT/HCPCS: 36415; 74176; 76830; 80053; 81001; 82150; 83605; 83690; 84703; 85025; 88305; 93976; 96374; 96375; 96376; 99285